=== PATIENT | female | born 1940 | race African-American/Black ===

== ENCOUNTER 2017-02-05 20:20 | Inpatient (IN) | payer MEDICARE, OTHER, MEDICAID ==
[~2017-02-05] VITALS: Ht 172.7 cm; Wt 59.9 kg
[2017-02-05 20:20] VITALS: BP 118/73
[~2017-02-05 20:20] MED LIST: AMLODIPINE PO; ATORVASTATIN PO; CLOPIDOGREL PO
[2017-02-05 20:30] VITALS: BP 118/73
[2017-02-05] MEDS ORDERED: ACETAMINOPHEN 650MG/20.3ML UDC GT PRN (21:45)
[2017-02-05] MEDS ORDERED: DEXTROSE 50% WATER 50ML SYRINGE IV PRN (21:45)
[2017-02-05] MEDS ORDERED: ONDANSETRON HCL 4MG TABLET GT PRN (21:45)
[2017-02-05] MEDS: INSULIN LISPRO 100 UNITS/ML SUBCUT SCH (21:45)
[2017-02-05] MEDS ORDERED: HALOPERIDOL LACTATE 5MG/ML VIAL IM PRN (21:45)
[2017-02-05] MEDS ORDERED: IPRATROPIUM/ALBUTEROL 0.5-3(2.5)MG/3ML NEB HHN PRN (21:45)
[2017-02-05] MEDS: POLYETHYLENE GLYCOL 3350 (17GM) 1 DOSE PACK PO SCH (23:17)
[2017-02-05] MEDS: LACTULOSE 20G/30ML UDC PO SCH (23:17)
[2017-02-05] MEDS: ASCORBIC ACID 250 MG TABLET PO SCH (23:17)
[2017-02-05] MEDS: ATORVASTATIN CALCIUM 40MG TABLET GT SCH (23:17)
[2017-02-05] MEDS: FAMOTIDINE 20MG TABLET GT SCH (23:18)
[2017-02-06] MEDS: BLOOD SUGAR DIAGNOSTIC STRIP TEST SCH ×4 (06:16→21:00)
[2017-02-06] MEDS: INSULIN LISPRO 100 UNITS/ML SUBCUT SCH ×4 (06:16→21:00)
[2017-02-06 07:04] LABS: BASOPHILS % 0.7 % (0.0-2.0); EOSINOPHILS % 3.4 % (0.0-5.0); HEMATOCRIT. 33.4 % (36.0-48.0); HEMOGLOBIN. 10.9 g/dL (12.0-16.0); LYMPHOCYTES % 36.1 % (20.0-50.0); MEAN CORPUSCULAR HEMOGLOBIN 27.6 pg (28.0-32.0); MEAN CORPUSCULAR VOLUME 84.3 fL (81.0-99.0); MEAN PLATELET VOLUME 9.5 fl (7.4-10.4); MONOCYTES % 8.9 % (2.0-8.0); NEUTROPHILS % 50.9 % (40.0-76.0); PLATELET 208 x1000/uL (130-400); RED BLOOD CELL COUNT 3.96 mill/uL (4.2-5.4); RED CELL DISTRIBUTION WIDTH 17.2 % (11.6-14.6)
[2017-02-06 07:43] LABS: CARBON DIOXIDE 28 mEq/L (21-32); CHLORIDE 106 mEq/L (98-107)
[2017-02-06 08:00] VITALS: BP 114/73
[2017-02-06] MEDS: AMLODIPINE 2.5MG TABLET GT SCH ×2 (09:00→21:00)
[2017-02-06] MEDS: CARVEDILOL 12.5MG TABLET GT SCH ×2 (09:00→21:00)
[2017-02-06] MEDS: MULTIVITAMINS,THER W-MINERALS TABLET GT SCH (09:25)
[2017-02-06] MEDS: ASCORBIC ACID 250 MG TABLET PO SCH ×2 (09:25→22:46)
[2017-02-06] MEDS: ZINC SULFATE 220 MG ( 50 ) CAPSULE GT SCH (09:25)
[2017-02-06] MEDS: DOCUSATE SODIUM SUGAR FREE 100MG/10ML UDC GT SCH ×2 (09:25→17:35)
[2017-02-06] MEDS: ASPIRIN 81MG TABLET GT SCH (09:25)
[2017-02-06] MEDS: CLOPIDOGREL 75MG TABLET GT SCH (09:25)
[2017-02-06] MEDS: ENOXAPARIN 40MG/0.4ML SYR SUBCUT SCH (09:26)
[2017-02-06] MEDS: POLYETHYLENE GLYCOL 3350 (17GM) 1 DOSE PACK PO SCH (09:26)
[2017-02-06] MEDS: VITAMIN B / W-C 1 TAB GT SCH (09:26)
[2017-02-06] MEDS: LACTULOSE 20G/30ML UDC PO SCH ×4 (09:26→22:46)
[2017-02-06 09:46] LABS: PREALBUMIN 25.8 mg/dL (20.0-40.0)
[2017-02-06 20:00] VITALS: BP 123/79
[2017-02-06] MEDS ORDERED: FAMOTIDINE 20MG TABLET GT SCH (21:00)
[2017-02-06] MEDS: ATORVASTATIN CALCIUM 40MG TABLET GT SCH (22:46)
[2017-02-06] MEDS: FAMOTIDINE 20MG TABLET GT SCH (22:46)
[2017-02-07] MEDS: BLOOD SUGAR DIAGNOSTIC STRIP TEST SCH ×4 (05:47→21:00)
[2017-02-07 08:00] VITALS: BP 132/78
[2017-02-07] MEDS: INSULIN LISPRO 100 UNITS/ML SUBCUT SCH ×4 (09:00→21:00)
[2017-02-07] MEDS: LACTULOSE 20G/30ML UDC PO SCH ×4 (09:00→21:00)
[2017-02-07] MEDS: ASPIRIN 81MG TABLET GT SCH (10:12)
[2017-02-07] MEDS: AMLODIPINE 2.5MG TABLET GT SCH ×2 (10:12→21:00)
[2017-02-07] MEDS: MULTIVITAMINS,THER W-MINERALS TABLET GT SCH (10:12)
[2017-02-07] MEDS: VITAMIN B / W-C 1 TAB GT SCH (10:13)
[2017-02-07] MEDS: ASCORBIC ACID 250 MG TABLET PO SCH ×2 (10:13→23:52)
[2017-02-07] MEDS: ZINC SULFATE 220 MG ( 50 ) CAPSULE GT SCH (10:13)
[2017-02-07] MEDS: CLOPIDOGREL 75MG TABLET GT SCH (10:13)
[2017-02-07] MEDS: CARVEDILOL 12.5MG TABLET GT SCH ×2 (10:14→21:00)
[2017-02-07] MEDS: ENOXAPARIN 40MG/0.4ML SYR SUBCUT SCH (10:16)
[2017-02-07] MEDS: DOCUSATE SODIUM SUGAR FREE 100MG/10ML UDC GT SCH ×2 (10:17→17:00)
[2017-02-07 10:52] LABS: AMMONIA < 10 uMol/L (<32)
[2017-02-07 20:00] VITALS: BP 125/53
[2017-02-07] MEDS: POLYETHYLENE GLYCOL 3350 (17GM) 1 DOSE PACK GT SCH (21:00)
[2017-02-07] MEDS: ATORVASTATIN CALCIUM 40MG TABLET GT SCH (23:52)
[2017-02-07] MEDS: FAMOTIDINE 20MG TABLET GT SCH (23:52)
[2017-02-08] MEDS: BLOOD SUGAR DIAGNOSTIC STRIP TEST SCH ×4 (06:19→21:00)
[2017-02-08 08:00] VITALS: BP 138/83
[2017-02-08] MEDS: INSULIN LISPRO 100 UNITS/ML SUBCUT SCH ×4 (09:00→21:00)
[2017-02-08] MEDS: DOCUSATE SODIUM SUGAR FREE 100MG/10ML UDC GT SCH ×2 (09:56→17:00)
[2017-02-08] MEDS: ASPIRIN 81MG TABLET GT SCH (09:57)
[2017-02-08] MEDS: ENOXAPARIN 40MG/0.4ML SYR SUBCUT SCH (09:57)
[2017-02-08] MEDS: LACTULOSE 20G/30ML UDC PO SCH ×4 (09:57→21:00)
[2017-02-08] MEDS: CLOPIDOGREL 75MG TABLET GT SCH (09:57)
[2017-02-08] MEDS: AMLODIPINE 2.5MG TABLET GT SCH ×2 (09:57→21:00)
[2017-02-08] MEDS: MULTIVITAMINS,THER W-MINERALS TABLET GT SCH (09:57)
[2017-02-08] MEDS: CARVEDILOL 12.5MG TABLET GT SCH ×2 (09:58→21:00)
[2017-02-08] MEDS: VITAMIN B / W-C 1 TAB GT SCH (09:58)
[2017-02-08] MEDS: ASCORBIC ACID 250 MG TABLET PO SCH ×2 (09:58→22:17)
[2017-02-08] MEDS: ZINC SULFATE 220 MG ( 50 ) CAPSULE GT SCH (09:58)
[2017-02-08 20:00] VITALS: BP 112/64
[2017-02-08] MEDS: POLYETHYLENE GLYCOL 3350 (17GM) 1 DOSE PACK GT SCH (21:00)
[2017-02-08] MEDS: ATORVASTATIN CALCIUM 40MG TABLET GT SCH (22:17)
[2017-02-08] MEDS: FAMOTIDINE 20MG TABLET GT SCH (22:17)
[2017-02-09] MEDS: BLOOD SUGAR DIAGNOSTIC STRIP TEST SCH ×2 (06:48→12:00)
[2017-02-09] MEDS: INSULIN LISPRO 100 UNITS/ML SUBCUT SCH ×2 (06:48→12:00)
[2017-02-09 08:07] VITALS: BP 126/76
[2017-02-09] MEDS: LACTULOSE 20G/30ML UDC PO SCH (09:49)
[2017-02-09] MEDS: DOCUSATE SODIUM SUGAR FREE 100MG/10ML UDC GT SCH (09:49)
[2017-02-09] MEDS: ASPIRIN 81MG TABLET GT SCH (09:50)
[2017-02-09] MEDS: MULTIVITAMINS,THER W-MINERALS TABLET GT SCH (09:50)
[2017-02-09] MEDS: CLOPIDOGREL 75MG TABLET GT SCH (09:50)
[2017-02-09] MEDS: ASCORBIC ACID 250 MG TABLET PO SCH (09:50)
[2017-02-09] MEDS: VITAMIN B / W-C 1 TAB GT SCH (09:50)
[2017-02-09] MEDS: ZINC SULFATE 220 MG ( 50 ) CAPSULE GT SCH (09:50)
[2017-02-09] MEDS: ENOXAPARIN 40MG/0.4ML SYR SUBCUT SCH (09:51)
[2017-02-09] MEDS: AMLODIPINE 2.5MG TABLET GT SCH (09:52)
[2017-02-09] MEDS: CARVEDILOL 12.5MG TABLET GT SCH (09:52)
[2017-02-09 13:31] VITALS: BP 126/76
[2017-02-12] MEDS ORDERED: ERGOCALCIFEROL 50000UNITS CAPSULE PO SCH (09:00)
== END 2017-02-09 14:11 | disposition home health service (06) | DRG 64 ==
PROVIDERS: ADMIT Physical Medicine & Rehabilitation Spinal Cord Injury Medicine; ATTEND Family Medicine Adult Medicine
DX: I63.9 Cerebral infarction, unspecified (principal); G82.50 Quadriplegia, unspecified; G93.40 Encephalopathy, unspecified; I42.9 Cardiomyopathy, unspecified; E87.0 Hyperosmolality and hypernatremia; E44.1 Mild protein-calorie malnutrition; E11.22 Type 2 diabetes mellitus with diabetic chronic kidney disease; G81.94 Hemiplegia, unspecified affecting left nondominant side; R13.10 Dysphagia, unspecified; D50.9 Iron deficiency anemia, unspecified; R53.81 Other malaise; R47.01 Aphasia; J44.9 Chronic obstructive pulmonary disease, unspecified; E78.00 Pure hypercholesterolemia, unspecified; E60 Dietary zinc deficiency; E55.9 Vitamin D deficiency, unspecified; N18.9 Chronic kidney disease, unspecified; I12.9 Hypertensive chronic kidney disease with stage 1 through stage 4 chronic kidney disease, or unspecified chronic kidney disease; E87.6 Hypokalemia; E78.5 Hyperlipidemia, unspecified; R47.1 Dysarthria and anarthria; Z68.20 Body mass index [BMI] 20.0-20.9, adult; Z93.1 Gastrostomy status; Z86.73 Personal history of transient ischemic attack (TIA), and cerebral infarction without residual deficits; Z89.422 Acquired absence of other left toe(s); Z88.8 Allergy status to other drugs, medicaments and biological substances; Z83.3 Family history of diabetes mellitus; Z82.49 Family history of ischemic heart disease and other diseases of the circulatory system
CPT/HCPCS: 36415; 80053; 82140; 82962; 84134; 85025; 92523; 92610; 93970; 97163; 97166; 97530; 97535; A4565; J1650